=== PATIENT | female | born 1955 | race Caucasian/White ===

== ENCOUNTER → 2020-08-15 | Outpatient (CLI) | payer OTHER ==
[2020-08-15 13:18] LABS: CREATININE 0.9 mg/dL (0.6-1.0)
== END ==
LOC: LAB 12:40
PROVIDERS: ATTEND Family Medicine
DX: C50.912 Malignant neoplasm of unspecified site of left female breast (principal)

== ENCOUNTER → 2020-08-19 | Outpatient (CLI) | payer OTHER | LOC: MRI 07:39 | DX: C50.912 Malignant neoplasm of unspecified site of left female breast (principal); R92.8 Other abnormal and inconclusive findings on diagnostic imaging of breast ==